=== PATIENT | female | born 1960 | race Caucasian/White ===

== ENCOUNTER 2020-05-03 07:52 | Observation (INO) | payer BC ==
[2020-05-03] MEDS ORDERED: Ondansetron 4 MG/2 ML SDV IVPUSH ONE (08:16)
[2020-05-03] MEDS ORDERED: Pantoprazole 40 MG Vial IVPUSH ONE (08:16)
[2020-05-03] MEDS ORDERED: Famotidine 20 MG/2 ML SDV IVPUSH ONE (08:16)
[2020-05-03] MEDS ORDERED: Lactated Ringers 1,000 ML IV ONE (08:16)
--- NOTE | 2020-05-03 08:16 | EDM.PDOC ---
ED HPI GENERAL MEDICAL PROBLEM - General Chief Complaint: Abdominal Pain Stated Complaint: abd pain Time Seen by Provider: 05/03/20 08:15 Source of Information: Reports: Patient, Old Records ([facility] EMR. No paper hospital chart available.) History Limitations: Reports: No Limitations - History of Present Illness INITIAL COMMENTS - FREE TEXT/NARRATIVE: The patient was brought to the emergency room via private automobile by a coworker for evaluation of 8/10 sharp left upper quadrant abdominal pain with sudden onset at work at about 6:45 AM this morning. Patient did have one loose bowel movement this morning with no known exposure to infection, food poisoning, etc. She did have a very light breakfast at about 5:30 AM, however 4 episodes of emesis prior to arrival. She did take her morning medications, however note emeses as above. No recent history of other abdominal pain, heartburn, true diarrhea, melena, gross hematochezia, or any food intolerance, including fatty foods, etc. with otherwise normal bowel movement earlier this morning as above. She denies any gross hematuria, colic, or other UTI symptoms. The patient denies any chest pain/pressure, heart flutter, dizziness, orthostasis, orthopnea, diaphoresis, paresthesias, recent decreased exercise tolerance, or any other anginal-type symptoms. The patient also denies any recent fever, cough, wheezing, dyspnea, etc.. Onset: Today, Sudden Onset Date: 05/03/20 Onset Time: 06:45 Duration: Constant, Getting Worse Location: Reports: Abdomen. Denies: Head, Face, Neck, Chest, Back, Pelvis, Upper Extremity, Left, Upper Extremity, Right, Lower Extremity, Left, Lower Extremity, Right, Radiates to Quality: Reports: Stabbing Severity: Moderate Improves with: Reports: None Worsens with: Reports: None Context: Reports: Other (As above). Denies: Sick Contact, Trauma Associated Symptoms: Reports: Nausea/Vomiting. Denies: Confusion, Chest Pain, Cough, Diaphoresis, Fever/Chills, Headaches, Loss of Appetite, Malaise, Rash, Shortness of Breath, Syncope, Weakness Treatments CHARACTER ACTRESS: Reports: Other (see below) (None) Left Upper Abdominal Pain Score (Numeric/FACES): 8 - Related Data Allergies Allergy/AdvReac Type Severity Reaction Status Date / Time Penicillins Allergy Cannot Verified 05/03/20 07:53 Remember propranolol Allergy Cannot Verified 05/03/20 07:53 Remember Home Meds: Home Meds DULoxetine [Cymbalta] 60 mg PO DAILY 05/03/20 [History] Gabapentin [Neurontin] 600 mg PO BEDTIME 05/03/20 [History] Omeprazole 40 mg PO DAILY 05/03/20 [History] metFORMIN [Glucophage XR] 250 mg PO BIDMEALS 05/03/20 [History] Past Medical History HEENT History: Reports: Impaired Vision, Other (See Below). Denies: Allergic Rhinitis, Cataract, Glaucoma, Hard of Hearing, Macular Degeneration, Otitis Media, Retinal Detachment Other HEENT History: No diabetic retinopathy. Patient wears reading glasses. Cardiovascular History: Reports: High Cholesterol. Denies: Aneurysm, Arrhythmia, Blood Clots/VTE/DVT, CAD, Heart Failure, Heart Murmur, Hypertension, TX, Syncope Respiratory History: Reports: None, Intubation, Previous. Denies: Asthma, Bronchitis, Recurrent, COPD, Intubation, Difficult, PE, Pneumonia, Recurrent, Pneumothorax, Sleep Apnea, TB Gastrointestinal History: Reports: GERD. Denies: Bowel Obstruction, Celiac Disease, Cholelithiasis, Chronic Constipation, Chronic Diarrhea, Colon Polyp, Diverticulosis, Fecal Incontinence, GI Bleed, Hepatitis, Helicobacter Pylori, Inflammatory Bowel Disease, Irritable Bowel Syndrome, Jaundice, Pancreatitis, PUD Genitourinary History: Reports: Renal Calculus. Denies: Acute Renal Failure, Chronic Renal Insuffiency, Retention, Urinary, STD, Urinary Incontinence, UTI, Recurrent Other Genitourinary History: Right-sided urolithiasis with open stone excision required at 23 years of age. 2 subsequent episodes of right-sided urolithiasis with spontaneous passage in the early . 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 Denies: Endometriosis : 4 Para: 2 LMP (Approximate): Other (See Below) Other HEALTHCARE CORPORATE ACCOUNT DIRECTOR History: Surgical menopause as below. 1 first trimester SAB not requiring D&C. delivery at 6 months gestation with demise. Otherwise, full term without complications during pregnancies or deliveries with exception of mild gestational hypertension at last . Musculoskeletal History: Reports: Arthritis, Back Pain, Chronic, Neck Pain, Chronic, Osteoarthritis. Denies: Amputation, Fracture, Gout, Osteoporosis, RA, SLE Neurological History: Reports: Headaches, Chronic, Migraines, Neuropathy, Diabetic, Neuropathy, Peripheral. Denies: Cerebral Aneurysms, Concussion, CVA, Head Trauma, MS, Parkinson's, Seizure, TIA, Vertigo Psychiatric History: Reports: Anxiety, Depression, Other (See Below). Denies: Abuse, Victim of, ADD, ADHD, Addiction, Psych Hospitalization(s), PTSD, Suicide Attempt, Suicidal Ideation Other Psychiatric History: Cymbalta for insomnia and pain control and diabetic neuropathy. Endocrine/Metabolic History: Reports: Diabetes, Type II, Obesity/BMI 30+. De nies: Diabetes, Gestational, Diabetes, Type I, Diabetes Mellitus, Type 3c, Hypothyroidism, IDDM, Osteopenia, Osteoporosis Hematologic History: Reports: None. Denies: Anemia, Blood Transfusion(s), Iron Deficiency Immunologic History: Reports: None. Denies: AIDS, HIV, SLE Oncologic (Cancer) History: Reports: None. Denies: Basal Cell Carcinoma, Cervix, Colon, Hodgkin's Lymphoma, Leukemia, Malignant Melanoma, Non-Hodgkin's Lymphoma, Ovarian, Squamous Cell Carcinoma, Thyroid, Uterine Dermatologic History: Reports: None. Denies: Eczema, Psoriasis - Infectious Disease History Infectious Disease History: Reports: Chicken Pox, Mononucleosis (In the late 1980s.). Denies: C-Difficile, Measles, Meningitis, MRSA, Mumps, Novel Coronavirus, Rheumatic Fever, Rubella, Shingles, TB, VRE - Past Surgical History Head Surgeries/Procedures: Reports: None HEENT Surgical History: Reports: Oral Surgery, Other (See Below). Denies: Adenoidectomy, Cataract Surgery, Eye Surgery, Laser Surgery, Myringotomy w Tube(s), Naso-Sinus Surgery, Tonsillectomy Other HEENT Surgeries/Procedures: [place] teeth extraction x4 at about age 27. Cardiovascular Surgical History: Reports: None. Denies: Varicose Respiratory Surgical History: Reports: None. Denies: Thoracentesis GI Surgical History: Reports: Colonoscopy, EGD, Other (See Below). Denies: Appendectomy, Cholecystectomy, Hernia, Abdominal, Hernia, Inguinal, Hernia Repair/Other, Polypectomy Other GI Surgeries/Procedures: Colonoscopy and EGD in about 2014. Female Surgical History: Reports: Tubal Ligation, Other (See Below). Denies: Breast Biopsy, D&C, Salpingo-Oophorectomy Other Female Surgeries/Procedures: Bilateral tubal ligation in 1988. Partial hysterectomy in 1995 secondary to uterine fibroids and dysfunctional uterine bleeding. Open excision of right sided urolithiasis at age 23. Endocrine Surgical History: Reports: None. Denies: Thyroid Biopsy Neurological Surgical History: Reports: None. Denies: C-Spine, Discectomy, Laminectomy, Lumbar Spine, Sacral Spine, Spinal Fusion, Thoracic Spine, Vertebroplasty Musculoskeletal Surgical History: Reports: None. Denies: Arthroscopic Procedure, Carpal Tunnel, Ganglion Cyst, Joint Replacement, ORIF, Shoulder Surgery Oncologic Surgical History: Reports: None Dermatological Surgical History: Reports: None - Past Imaging History Past Imaging History: Reports: Ultrasound (OB ultrasounds.) Social & Family History - Family History HEENT: Reports: Glaucoma, Other (See Below). Denies: Macular Degeneration, Retinal Detachment Other HEENT Family History: Mother with glaucoma. Cardiac: Reports: CAD, Hypertension, TX, Stent, Other (See Below). Denies: Afib, AICD, Aneurysm, Blood Clots/VTE/DVT, Heart Failure, High Cholesterol, Pacemaker, Syncope Other Cardiac Family History: Father with TX at age 75 with PTCA/stent x3. Brother with history of recurrent MIs initially at age 50 with multiple PTCA/nu nts. Paternal grand mother and parents with hypertension. Respiratory: Reports: None. Denies: Asthma, COPD, PE, Pneumothorax, Sleep Apnea GI: Reports: Cholelithiasis, GERD, Hiatal Hernia, Pancreatitis, Other (See Below). Denies: Celiac Disease, Colon Polyps, Inflammatory Bowel Disease, Irritable Bowel Syndrome Other GI Family History: Paternal grandmother with pancreatic cancer as below. Mother with cholelithiasis, hiatal hernia, and GERD. : Reports: Renal Calculus, Other (See Below). Denies: Renal Disease/Insufficiency Other Family History: Paternal grandmother with recurrent urolithiasis. OBGYN: Reports: None. Denies: Dysfunctional uterine bleeding, Endometriosis, Recurrent Spontaneous Musculoskeletal: Reports: None. Denies: Arthritis, Gout, Osteoarthritis, Osteoporosis, RA, SLE Neurological: Reports: Alzheimers Disease, Dementia, Seizure, Other (See Below). Denies: Cerebral Aneurysms, CVA, Migraines, MS, Parkinson's, TIA Other Neurological Family History: Maternal grandmother with organic brain syndrome. Sister with childhood including epilepsy with subsequent fatal glioblastoma as below. Psychiatric: Reports: None. Denies: Abuse, Victim of, ADD, ADHD, Anxiety, Depression, Psych Hospitalization(s), PTSD, Suicide Attempt Endocrine/Metabolic: Reports: Hyperthyroidism, Hypothyroidism, Other (See Below). Denies: Diabetes, Type I, Diabetes, type II, IDDM Other Endocrine/Metabolic Family History: Sister and daughter with history of Graves' disease. Hematologic: Reports: None. Denies: Anemia, SLE Immunologic: Denies: AIDS, HIV, SLE Dermatologic: Reports: None. Denies: Eczema, Psoriasis Oncologic: Reports: Bladder, Brain, Breast, Colon, Liver, Lung, Pancreatic, Other (See Below). Denies: Hodgkin's Lymphoma, Leukemia, Non-Hodgkin's Lymphoma, Ovarian, Renal, Skin, Uterine Other Oncologic Family History: Paternal grandmother with fatal metastatic pancreatic cancer in her 80's with previous bladder cancer, lung cancer, and breast cancer. Maternal grandfather with fatal metastatic pancreatic cancer at age 65. Sister with history of glioblastoma at age 39. Father with fatal metastatic pancreatic cancer at age 76. Paternal uncle with fatal primary liver cancer at age 75 with no history of alcohol abuse. - Tobacco Use Tobacco Use Status *Q: Never Tobacco User Tobacco Use Within Last Twelve Months: No Used Tobacco, but Quit: No Smoking Cessation Information Provided To Patient: No Second Hand Smoke Exposure: Yes Source of Second Hand Smoke Exposure: chews tobacco Second Hand Smoke Education Provided: Yes - Caffeine Use Caffeine Use: Reports: Tea (3 cups or glasses). Denies: Coffee, Energy Drinks, Soda - Alcohol Use Days Per Week of Alcohol Use: 0 Number of Drinks Per Day: 1 Number of Drinks Per Day Comment: Usually wine for holidays. No previous DWIs, problems with alcohol abuse, etc. Total Drinks Per Week: 0 Alcohol Use in Last Twelve Months: Yes - Recreational Drug Use Recreational Drug Use: No Drug Use in Last 12 Months: No Recreational Drug Type: Denies: Amphetamines (Speed), Cocaine, Heroin, Inhalants (Glues, Solvents, Aerosols), Marijuana/Hashish, Methamphetamine, Oxycodone - Living Situation & Occupation Living situation: Reports: (1980. 2 children), with Family () Occupation: Employed ([employer]) ED ROS GENERAL - Review of Systems Review Of Systems: Comprehensive ROS is negative, except as noted in HPI. ED EXAM, GI/ABD - Physical Exam Exam: See Below Exam Limited By: No Limitations General Appearance: Alert, WD/WN, No Apparent Distress, Anxious (Mild to moderate) Eyes: Bilateral: Normal Appearance (No vertigo or nystagmus. No glasses.), EOMI (PERRLA) Ears: Normal External Exam, Normal Canal, Hearing Grossly Normal, Normal TMs Nose: Normal Inspection, Normal Mucosa, No Blood Throat/Mouth: Normal Inspection, Normal Lips, Normal Teeth, Normal Gums, Normal Oropharynx, Normal Voice, No Airway Compromise. No: Dysphagia, Inflammation, Perioral Cyanosis Head: Atraumatic, Normocephalic. No: Facial Swelling, Facial Tenderness, Sinus Tenderness Neck: Normal Inspection, Supple, Non-Tender, Full Range of Motion. No: Carotid Bruit, Lymphadenopathy (L), Lymphadenopathy (R), Thyromegaly Respiratory/Chest: No Respiratory Distress, Lungs Clear, Normal Breath Sounds, No Accessory Muscle Use, Chest Non-Tender. No: Pleural Rub, Retractions Cardiovascular: Normal Peripheral Pulses, Regular Rate, Rhythm, No Edema, No Gallop, No JVD, No Murmur, No Rub. No: Diastolic Murmur, Gallop/S3, Gallop/S4 GI/Abdominal Exam: Normal Bowel Sounds, No Organomegaly, No Distention, No Abnormal Bruit, No Mass, Tender (Moderate left upper quadrant palpation pain). No: Guarding, Rebound (Female) Exam: Deferred Rectal (Female) Exam: Deferred Back Exam: Full Range of Motion, Other (Mild scoliosis). No: CVA Tenderness (L), CVA Tenderness (R), Muscle Spasm, Paraspinal Tenderness, Vertebral Tenderness Extremities: Normal Inspection, Normal Range of Motion, Non-Tender, Normal Capillary Refill, No Pedal Edema Neurological: Alert, Oriented, CN II-XII Intact, Normal Cognition, Normal Gait, Normal Reflexes, No Motor/Sensory Deficits Psychiatric: Anxious (Mild to moderate), Depressed Mood (Borderline) Skin Exam: Warm, Dry, Intact, Normal Color, No Rash. No: Diaphoretic (Mild on arrival by nurses history however resolved at time of my exam), Ecchymosis, Jaundice, Petechiae, Wound/Incision Lymphatic: No Adenopathy Course - Vital Signs Last Recorded V/S: Last Vital Signs Temp 36.1 C 05/03/20 08:07 Pulse 88 05/03/20 09:35 Resp 16 05/03/20 10:20 BP 120/68 05/03/20 10:20 Pulse Ox 93 L 05/03/20 10:20 Vital Signs - 24 hr 05/03/20 05/03/20 05/03/20 07:53 08:07 08:57 Temperature [ 36.1 C 36.1 C Temporal] Pulse, 81 85 85 Peripheral [ Pulse Oximetry] Respiratory 20 20 18 Rate Blood Pressure 157/121 H 143/70 H 149/68 H [Left Upper Arm ] O2 Sat by Pulse 96 96 94 L Oximetry 05/03/20 05/03/20 09:35 10:20 Temperature [ Temporal] Pulse, 88 Peripheral [ Pulse Oximetry] Respiratory 18 16 Rate Blood Pressure 146/84 H 120/68 [Left Upper Arm ] O2 Sat by Pulse 95 93 L Oximetry - Orders/Labs/Meds Orders: Active Orders 24 hr Category Date Time Status Peripheral IV Care [RC] . DIRECTED Care 05/03/20 08:17 Active Nothing Per Oral Diet [DIET] Diet 05/03/20 Breakfast Active Abdomen Pelvis w Cont [CT] Stat Exams 05/03/20 09:33 Taken Abdomen Series w Chest 1V [CR] Stat Exams 05/03/20 08:17 Taken CULTURE URINE [RM] Stat Lab 05/03/20 09:50 Received Sodium Chloride 0.9% [Saline Flush] Med 05/03/20 08:16 Active 10 ml FLUSH ASDIRECTED PRN Isolation [COMM] Routine Oth 05/03/20 08:18 Active Obtain Past Medical Record [OM.PC] Urgent Oth 05/03/20 08:17 Active Peripheral IV Insertion Adult [OM.PC] Stat Oth 05/03/20 08:17 Ordered Resuscitation Status Stat Resus Stat 05/03/20 08:16 Ordered Medication Orders Sodium Chloride (Saline Flush) 10 ml FLUSH ASDIRECTED PRN PRN Reason: Keep Vein Open Last Admin: 05/03/20 09:39 Dose: 10 ml Documented by: Admin: 05/03/20 08:32 Dose: 10 ml Documented by: CARMELO Labs: Laboratory Tests 05/03/20 05/03/20 05/03/20 Range/Units 08:00 08:00 08:00 WBC 6.2 (4.0-10.2) K/uL RBC 4.89 (3.77-5.09) M/uL Hgb 14.0 (11.7-15.5) g/dL Hct 43.5 (34.0-46.0) % MCV 89.0 (84.0-98.0) fL MCH 28.6 (28.2-33.3) pg MCHC 32.2 (31.7-36.0) g/dL RDW 13.6 (11.2-14.1) % Plt Count 221 (150-350) K/uL Neut % (Auto) 61.9 (45.0-80.0) % Lymph % (Auto) 26.8 (10.0-50.0) % [place] % (Auto) 5.8 (2.0-14.0) % Eos % (Auto) 4.7 (0.0-5.0) % Baso % (Auto) 0.8 (0.0-2.0) % Neut # (Auto) 3.85 (1.40-7.00) K/uL Lymph # (Auto) 1.67 (0.50-3.50) K/uL [place] # (Auto) 0.36 (0.00-1.00) K/uL Eos # (Auto) 0.29 (0.00-0.50) K/uL Baso # (Auto) 0.05 (0.00-0.20) K/uL PT 9.1 L (9.5-12.0) SEC INR 0.9 APTT 23.2 L (24.5-32.8) SEC Sodium (136-145) mmol/L Potassium (3.5-5.1) mmol/L Chloride (98-107) mmol/L Carbon Dioxide (21.0-32.0) mmol/L BUN (7-18) mg/dL Creatinine (0.51-1.17) mg/dL Est Cr Clr Drug Dosing mL/min Estimated GFR (MDRD) mL/min Glucose (70-99) mg/dL Lactic Acid (0.4-2.0) mmol/L Uric Acid (2.6-7.2) mg/dL Calcium (8.5-10.1) mg/dL Magnesium (1.8-2.4) mg/dL Total Bilirubin (0.2-1.0) mg/dL AST (15-37) U/L ALT (12-78) U/L Alkaline Phosphatase (46-116) IU/L Total Protein (6.4-8.2) g/dL Albumin (3.4-5.0) g/dL Amylase 31 (25-115) U/L Lipase (73-393) U/L Specimen Type Urine Color Urine Appearance Urine pH (5.0-9.0) Ur Specific [place] (1.005-1.030) Urine Protein (NEGATIVE) mg/dL Urine Glucose (UA) (NEGATIVE) mg/dL Urine Ketones (NEGATIVE) mg/dL Urine Occult Blood (NEGATIVE) Urine Nitrite (NEGATIVE) Urine Bilirubin (NEGATIVE) Urine Urobilinogen (0.2-1.0) E.U./dL Ur Leukocyte Esterase (NEGATIVE) Urine RBC /HPF Urine WBC /HPF Urine Bacteria (NONE TO FEW) /HPF SARS-CoV-2 RNA (ADITI) (NEGATIVE) 05/03/20 05/03/20 05/03/20 Range/Units 08:00 08:00 08:18 WBC (4.0-10.2) K/uL RBC (3.77-5.09) M/uL Hgb (11.7-15.5) g/dL Hct (34.0-46.0) % MCV (84.0-98.0) fL MCH (28.2-33.3) pg MCHC (31.7-36.0) g/dL RDW (11.2-14.1) % Plt Count (150-350) K/uL Neut % (Auto) (45.0-80.0) % Lymph % (Auto) (10.0-50.0) % [place] % (Auto) (2.0-14.0) % Eos % (Auto) (0.0-5.0) % Baso % (Auto) (0.0-2.0) % Neut # (Auto) (1.40-7.00) K/uL Lymph # (Auto) (0.50-3.50) K/uL [place] # (Auto) (0.00-1.00) K/uL Eos # (Auto) (0.00-0.50) K/uL Baso # (Auto) (0.00-0.20) K/uL PT (9.5-12.0) SEC INR APTT (24.5-32.8) SEC Sodium 140 (136-145) mmol/L Potassium 3.9 (3.5-5.1) mmol/L Chloride 104 (98-107) mmol/L Carbon Dioxide 26.9 (21.0-32.0) mmol/L BUN 13 (7-18) mg/dL Creatinine 0.76 (0.51-1.17) mg/dL Est Cr Clr Drug Dosing 70.52 mL/min Estimated GFR (MDRD) > 60 mL/min Glucose 226 H (70-99) mg/dL Lactic Acid 1.8 (0.4-2.0) mmol/L Uric Acid 5.0 (2.6-7.2) mg/dL Calcium 9.0 (8.5-10.1) mg/dL Magnesium 1.9 (1.8-2.4) mg/dL Total Bilirubin 0.4 (0.2-1.0) mg/dL AST 55 H (15-37) U/L ALT 100 H (12-78) U/L Alkaline Phosphatase 128 H (46-116) IU/L Total Protein 7.2 (6.4-8.2) g/dL Albumin 3.6 (3.4-5.0) g/dL Amylase (25-115) U/L Lipase 105 (73-393) U/L Specimen Type Urine Color Urine Appearance Urine pH (5.0-9.0) Ur Specific [place] (1.005-1.030) Urine Protein (NEGATIVE) mg/dL Urine Glucose (UA) (NEGATIVE) mg/dL Urine Ketones (NEGATIVE) mg/dL Urine Occult Blood (NEGATIVE) Urine Nitrite (NEGATIVE) Urine Bilirubin (NEGATIVE) Urine Urobilinogen (0.2-1.0) E.U./dL Ur Leukocyte Esterase (NEGATIVE) Urine RBC /HPF Urine WBC /HPF Urine Bacteria (NONE TO FEW) /HPF SARS-CoV-2 RNA (ADITI) Negative (NEGATIVE) 05/03/20 Range/Units 09:50 WBC (4.0-10.2) K/uL RBC (3.77-5.09) M/uL Hgb (11.7-15.5) g/dL Hct (34.0-46.0) % MCV (84.0-98.0) fL MCH (28.2-33.3) pg MCHC (31.7-36.0) g/dL RDW (11.2-14.1) % Plt Count (150-350) K/uL Neut % (Auto) (45.0-80.0) % Lymph % (Auto) (10.0-50.0) % [place] % (Auto) (2.0-14.0) % Eos % (Auto) (0.0-5.0) % Baso % (Auto) (0.0-2.0) % Neut # (Auto) (1.40-7.00) K/uL Lymph # (Auto) (0.50-3.50) K/uL [place] # (Auto) (0.00-1.00) K/uL Eos # (Auto) (0.00-0.50) K/uL Baso # (Auto) (0.00-0.20) K/uL PT (9.5-12.0) SEC INR APTT (24.5-32.8) SEC Sodium (136-145) mmol/L Potassium (3.5-5.1) mmol/L Chloride (98-107) mmol/L Carbon Dioxide (21.0-32.0) mmol/L BUN (7-18) mg/dL Creatinine (0.51-1.17) mg/dL Est Cr Clr Drug Dosing mL/min Estimated GFR (MDRD) mL/min Glucose (70-99) mg/dL Lactic Acid (0.4-2.0) mmol/L Uric Acid (2.6-7.2) mg/dL Calcium (8.5-10.1) mg/dL Magnesium (1.8-2.4) mg/dL Total Bilirubin (0.2-1.0) mg/dL AST (15-37) U/L ALT (12-78) U/L Alkaline Phosphatase (46-116) IU/L Total Protein (6.4-8.2) g/dL Albumin (3.4-5.0) g/dL Amylase (25-115) U/L Lipase (73-393) U/L Specimen Type Urinvoid Urine Color Yellow Urine Appearance Clear Urine pH 7.0 (5.0-9.0) Ur Specific [place] 1.015 (1.005-1.030) Urine Protein Negative (NEGATIVE) mg/dL Urine Glucose (UA) Negative (NEGATIVE) mg/dL Urine Ketones Negative (NEGATIVE) mg/dL Urine Occult Blood Negative (NEGATIVE) Urine Nitrite Negative (NEGATIVE) Urine Bilirubin Negative (NEGATIVE) Urine Urobilinogen 0.2 (0.2-1.0) E.U./dL Ur Leukocyte Esterase Negative (NEGATIVE) Urine RBC Not seen /HPF Urine WBC Not seen /HPF Urine Bacteria Not seen (NONE TO FEW) /HPF SARS-CoV-2 RNA (ADITI) (NEGATIVE) Meds: Medications Generic Name Dose Route Start Last Admin Trade Name Freq PRN Reason Stop Dose Admin Sodium Chloride 10 ml 05/03/20 08:16 05/03/20 09:39 Saline Flush FLUSH 10 ml ASDIRECTED PRN Administration Keep Vein Open Discontinued Medications Generic Name Dose Route Start Last Admin Trade Name Freq PRN Reason Stop Dose Admin Al Hydroxide/Mg Hydroxide 30 ml 05/03/20 08:51 05/03/20 08:54 Gi Cocktail PO 05/03/20 08:52 30 ml ONETIME ONE Administration Famotidine 40 mg 05/03/20 08:16 05/03/20 08:30 Pepcid IVPUSH 05/03/20 08:17 40 mg ONETIME ONE Administration Hydromorphone HCl 1 mg 05/03/20 08:50 05/03/20 08:54 Dilaudid IVPUSH 05/03/20 08:51 1 mg ONETIME ONE Administration Lactated Ringer's 1,000 mls @ 999 mls/hr 05/03/20 08:16 05/03/20 08:34 Ringers, Lactated IV 05/03/20 09:16 999 mls/hr .BOLUS ONE Administration Iopamidol 100 ml 05/03/20 09:38 Isovue-300 (61%) IVPUSH 05/03/20 09:39 ONETIME ONE Metoclopramide HCl 10 mg 05/03/20 09:34 05/03/20 09:39 Reglan IVPUSH 05/03/20 09:35 10 mg ONETIME ONE Administration Ondansetron HCl 4 mg 05/03/20 08:16 05/03/20 08:25 Zofran IVPUSH 05/03/20 08:17 4 mg ONETIME ONE Administration Pantoprazole Sodium 40 mg 05/03/20 08:16 05/03/20 08:26 Protonix Iv IVPUSH 05/03/20 08:17 40 mg ONETIME ONE Administration - Radiology Interpretation Free Text/Narrative:: Acute abdominal x-rays shows evidence of mild scoliosis and osteoarthritic changes in the spine with additional mildly elevated right hemidiaphragm with no evidence of intra-abdominal calcifications, fluid levels, free air, ileus, obstruction, cardiomegaly, CHF, pulmonary infiltrates, pneumothorax, etc. CT of the abdomen and pelvis with both IV and oral contrast indicate no evidence of pancreatitis with mild hepatomegaly and moderate diffuse hepatic steatosis. Additional not clinically significant tiny fatty umbilical hernia. Incidental possible mild benign renal cyst. Preliminary verbal report was not received from [place] radiology department as requested. 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 Diabetes mellitus complication status: with neurologic complications Diabetes mellitus complication detail: with polyneuropathy Qualified Code(s): E11.42 - Type 2 diabetes mellitus with diabetic polyneuropathy Osteoarthritis Qualifiers: Osteoarthritis location: multiple joints Osteoarthritis type: primary Qualified Code(s): M89.49 - Other hypertrophic osteoarthropathy, multiple sites Hyperlipidemia Qualifiers: Hyperlipidemia type: unspecified Qualified Code(s): E78.5 - Hyperlipidemia, unspecified - Discharge Information *PRESCRIPTION DRUG MONITORING PROGRAM REVIEWED*: Not Applicable *COPY OF PRESCRIPTION DRUG MONITORING REPORT IN PATIENT YOEL: Not Applicable Referrals: Imani Virgen NP [Primary Care Provider] - Forms: ED Department Discharge Care Plan Goals: See plan Sepsis Event Note (ED) - Evaluation Sepsis Screening Result: No Definite Risk - Focused Exam Vital Signs: Vital Signs Temp Pulse Resp BP Pulse Ox 05/03/20 10:20 16 120/68 93 L 05/03/20 09:35 88 18 146/84 H 95 02/23/21 08:57 85 18 149/68 H 94 L 05/03/20 08:07 36.1 C 85 20 143/70 H 96 05/03/20 07:53 36.1 C 81 20 157/121 H 96 - Problem List & Annotations (1) Abdominal pain SNOMED Code(s): 79938901 Code(s): R10.9 - UNSPECIFIED ABDOMINAL PAIN Status: Acute Current Visit: Yes Onset Date: 05/03/20 Annotation/Comment:: Note CTA of the abdomen and pelvis results as above. Strong family history of pancreatic cancer with patient apparently previously having genetic testing. Continue to observe patient's symptoms closely after discharge with consideration of MRI of the pancreatic region secondary to her significant family history of pancreatic cancer and other risk factors. Abdominal pain somewhat refractory to aggressive therapy as above, including high-dose IV Pepcid, IV Protonix, and green lizard. Note additional IV Reglan and IV Zofran was given with improved/resolved nausea. Patient's abdominal pain was returning at the end of her emergency room care. Various therapeutic options were discussed with the patient with patient be placed in observation status for further IV therapy and repeat blood work in the a.m. Qualifiers: Abdominal location: left upper quadrant Qualified Code(s): R10.12 - Left upper quadrant pain (2) Diabetes mellitus SNOMED Code(s): 82279950 Code(s): E11.9 - TYPE 2 DIABETES MELLITUS WITHOUT COMPLICATIONS Status: Chronic Priority: Medium Current Visit: Yes Annotation/Comment:: Glycosylated hemoglobin in the a.m. Patient has been noncompliant with her home Accu-Cheks. Qualifiers: Diabetes mellitus type: type 2 Diabetes mellitus longterm insulin use: without superintendent [employer] use Diabetes mellitus complication status: with neurologic complications Diabetes mellitus complication detail: with polyneuropathy Qualified Code(s): E11.42 - Type 2 diabetes mellitus with diabetic polyneuropathy (3) Elevated blood pressure reading SNOMED Code(s): 18182342 Code(s): R03.0 - ELEVATED BLOOD-PRESSURE READING, W/O DIAGNOSIS OF HTN Status: Acute Priority: High Current Visit: Yes Onset Date: 05/03/20 Annotation/Comment:: Moderately elevated blood pressures likely secondary to abdominal pain. No previous history of hypertension, although note history of gestational hypertension without eclampsia. (4) LFT elevation SNOMED Code(s): 107357574 Code(s): R79.89 - OTHER SPECIFIED ABNORMAL FINDINGS OF BLOOD CHEMISTRY Status: Acute Priority: High Current Visit: Yes Onset Date: 05/03/20 Annotation/Comment:: LFTs elevation possibly secondary to fatty liver, which was confirmed by today CT scan of the abdomen pelvis as above. Close observation after discharge by regular provider. Note current obesity. Total bilirubin, lipase and amylase were normal. (5) Mixed anxiety depressive disorder SNOMED Code(s): 115191799 Code(s): F41.8 - OTHER SPECIFIED ANXIETY DISORDERS Status: Chronic Priority: Medium Current Visit: Yes Annotation/Comment:: Stable by patient history (6) Osteoarthritis SNOMED Code(s): 580869816 Code(s): M19.90 - UNSPECIFIED OSTEOARTHRITIS, UNSPECIFIED SITE Status: Chronic Priority: Medium Current Visit: Yes Annotation/Comment:: Stable by patient history Qualifiers: Osteoarthritis location: multiple joints Osteoarthritis type: primary Qualified Code(s): M89.49 - Other hypertrophic osteoarthropathy, multiple sites (7) Peptic reflux disease SNOMED Code(s): 645965381 Code(s): K21.9 - GASTRO-ESOPHAGEAL REFLUX DISEASE WITHOUT ESOPHAGITIS Status: Chronic Priority: Medium Current Visit: Yes Annotation/Comment:: Aggressive therapy for abdominal pain as above. Previously stable by history, including no fatty food intolerance, etc.. Consider further work-up on an outpatient basis including possible EGD, HIDA scan, etc. depending on her clinical course. (8) Tobacco abuse counseling SNOMED Code(s): 389559093, 953271803, 166163961 Code(s): Z71.6 - TOBACCO ABUSE COUNSELING Status: Chronic Priority: Medium Current Visit: Yes Annotation/Comment:: The patient was counseled on the use of Nicorette gum for her . (9) Fatty liver SNOMED Code(s): 906070740 Code(s): K76.0 - FATTY (CHANGE OF) LIVER, NOT ELSEWHERE CLASSIFIED Status: Acute Priority: High Current Visit: Yes Onset Date: 05/03/20 Annotation/Comment:: As above (10) Hyperlipidemia SNOMED Code(s): 52009867 Code(s): E78.5 - HYPERLIPIDEMIA, UNSPECIFIED Status: Chronic Priority: High Current Visit: Yes Annotation/Comment:: Note previous history of intolerance to unknown statin secondary to leg cramps. Weight loss in moder ation strongly advisable. Note that the patient may benefit from a retrial with statin therapy initially on a Mondays, Wednesdays, and Fridays basis with additional high-dose Coenzyme Q-10 therapy. Close follow-up by regular provider after discharge. Qualifiers: Hyperlipidemia type: unspecified Qualified Code(s): E78.5 - Hyperlipidemia, unspecified - Problem List Review Problem List Initiated/Reviewed/Updated: Yes - My Orders Last 24 Hours: My Active Orders 05/03/20 Breakfast Nothing Per Oral Diet [DIET] 05/03/20 08:16 Sodium Chloride 0.9% [Saline Flush] 10 ml FLUSH ASDIRECTED PRN Resuscitation Status Stat 05/03/20 08:17 Peripheral IV Care [RC] . DIRECTED Abdomen Series w Chest 1V [CR] Stat Obtain Past Medical Record [OM.PC] Urgent Peripheral IV Insertion Adult [OM.PC] Stat 05/03/20 08:18 Isolation [COMM] Routine 05/03/20 09:33 Abdomen Pelvis w Cont [CT] Stat 05/03/20 09:50 CULTURE URINE [RM] Stat - Assessment/Plan Admission H&P: Please use this note as an admission H&P Last 24 Hours: My Active Orders 05/03/20 Breakfast Nothing Per Oral Diet [DIET] 05/03/20 08:16 Sodium Chloride 0.9% [Saline Flush] 10 ml FLUSH ASDIRECTED PRN Resuscitation Status Stat 05/03/20 08:17 Peripheral IV Care [RC] . DIRECTED Abdomen Series w Chest 1V [CR] Stat Obtain Past Medical Record [OM.PC] Urgent Peripheral IV Insertion Adult [OM.PC] Stat 05/03/20 08:18 Isolation [COMM] Routine 05/03/20 09:33 Abdomen Pelvis w Cont [CT] Stat 05/03/20 09:50 CULTURE URINE [RM] Stat Assessment:: As above Plan: As above. Extensive precautions were given to the patient, who is in agreement with the treatment plan.
[2020-05-03 08:31] LABS: PTT,PARTIAL THROMBOPLSTIN TIME 23.2 SEC (24.5-32.8)
[2020-05-03 08:32] LABS: CHLORIDE,CL 104 mmol/L (98-107); SODIUM,NA 140 mmol/L (136-145)
[2020-05-03] MEDS: Sodium Chloride 0.9% 10 ML Syringe FLUSH PRN ×3 (08:32→13:13)
[2020-05-03] MEDS ORDERED: HYDROmorphone 1 MG/ML Syringe IVPUSH ONE (08:50)
[2020-05-03] MEDS ORDERED: GI Cocktail Oral Solution 30 ML PO ONE (08:51)
[2020-05-03] MEDS ORDERED: Metoclopramide 10 MG/2 ML SDV IVPUSH ONE (09:34)
[2020-05-03] MEDS ORDERED: Iopamidol 612 MG/ML 100 ML Bottle IVPUSH ONE (09:38)
[2020-05-03] MEDS ORDERED: Acetaminophen 325 MG Tab PO PRN (12:26)
[2020-05-03] MEDS ORDERED: Sucralfate 1 GM Tab PO ONE (12:28)
[2020-05-03] MEDS ORDERED: Famotidine 20 MG/2 ML SDV IVPUSH SCH (12:45)
[2020-05-03] MEDS: HYDROmorphone 1 MG/ML Syringe IVPUSH PRN (13:13)
[2020-05-03] MEDS: Calcium Carbonate 750 MG Tab.Chew PO SCH ×2 (13:15→17:08)
[2020-05-03] MEDS ORDERED: 50% Dextrose in Water 50 ML Syringe IV PRN (14:30)
[2020-05-03] MEDS ORDERED: Glucagon,Human Recombinant 1 MG Vial IM PRN (14:30)
[2020-05-03] MEDS: Sucralfate 1 GM Tab PO SCH (17:08)
[2020-05-03] MEDS: Insulin Lispro 100 Units/ML 3 ML Vial SUBCUT SCH (17:08)
[2020-05-03] MEDS ORDERED: METFORMIN 250 MG PO SCH (17:30)
[2020-05-03] MEDS: Ondansetron 4 MG/2 ML SDV IVPUSH PRN (17:46)
[2020-05-03] MEDS ORDERED: Temazepam 15 MG Cap PO PRN (20:00)
[2020-05-03] MEDS ORDERED: Gabapentin 300 MG Cap PO SCH (20:00)
[2020-05-03] MEDS: Sodium Chloride 0.9% 10 ML Syringe FLUSH SCH (20:11)
[2020-05-03] MEDS: Pantoprazole 40 MG Vial IVPUSH SCH (20:11)
[2020-05-03] MEDS: Famotidine 20 MG/2 ML SDV IVPUSH SCH (20:11)
[2020-05-04] MEDS: Sucralfate 1 GM Tab PO SCH ×2 (00:52→05:15)
[2020-05-04] MEDS: Insulin Lispro 100 Units/ML 3 ML Vial SUBCUT SCH ×2 (00:52→05:34)
[2020-05-04] MEDS: Ondansetron 4 MG/2 ML SDV IVPUSH PRN ×2 (03:28→10:29)
[2020-05-04] MEDS: HYDROmorphone 1 MG/ML Syringe IVPUSH PRN (03:28)
[2020-05-04 07:32] LABS: HEMOGLOBIN A1C 8.1 % (4.3-5.7)
[2020-05-04] MEDS: Calcium Carbonate 750 MG Tab.Chew PO SCH (07:40)
[2020-05-04] MEDS: Pantoprazole 40 MG Vial IVPUSH SCH (07:41)
[2020-05-04] MEDS: Sodium Chloride 0.9% 10 ML Syringe FLUSH SCH ×2 (07:41→10:29)
[2020-05-04] MEDS: Famotidine 20 MG/2 ML SDV IVPUSH SCH (07:41)
[2020-05-04] MEDS ORDERED: DULoxetine 30 MG Cap PO SCH (08:00)
[2020-05-04 09:04] VITALS: BP 124/70; PULSE 72
--- NOTE | 2020-05-04 09:28 | PCM.DCSUM1 ---
Discharge Summary - Hospital Course HPI Initial Comments: See emergency room note/admission H&P Brief History: See emergency room note/admission H&P Diagnosis: Stroke: No Modified Talbot[place] Scale: No Symptoms at All Modified Talbot[place] Scale Score: 0 - Discharge Data Discharge Date: 05/04/20 Discharge Disposition: Home, Self-Care 01 Condition: Good - Referral to Home Health Primary Care Physician: Imani Virgen NP - Discharge Diagnosis/Problem(s) (1) Abdominal pain SNOMED Code(s): 41098418 ICD Code: R10.9 - UNSPECIFIED ABDOMINAL PAIN Status: Acute Current Visit: Yes Onset Date: 05/03/20 Problem Details: Significantly improved abdominal pain with aggressive therapy, including high-dose IV Protonix, IV Pepcid, and oral Carafate with additional antacids. Occasional IV Dilaudid was needed for breakthrough pain during this hospitalization. Various therapeutic options were discussed with the patient, who does agree to go home at this time. Work excuse was provided. Acute hepatitis panel was ordered secondary to persistent and mildly progressive LFTs elevation likely secondary to fatty liver, however results are still pending with this being a send out laboratory. In addition, a HIDA scan has been scheduled for 05/05 with results to be sent to her regular provider, MILTON Clinton at the [facility]. Note CTA of the abdomen and pelvis results as per emergency room note with no evidence of pancreatitis. Strong family history of pancreatic cancer with patient apparently previously having genetic testing, which indicated significant risk for pancreatic cancer. Continue to observe patient's symptoms closely after discharge with consideration of MRI of the pancreatic region secondary to her significant family history of pancreatic cancer and other risk factors. Abdominal pain somewhat refractory to aggressive therapy initially during this hospitalization with aggressive treatment as above Note additional green lizard, IV Reglan and IV Zofran were given during the early phases of this hospitalization with improved/resolved nausea at time of discharge. Patient's abdominal pain was returning at the end of her emergency room care. Various therapeutic options were discussed with the patient with patient be placed in observation status for further IV therapy, etc. as above. Strict compliance with diabetic heart healthy diet was strongly encouraged. Consider EGD depending on her clinical course. Qualifiers: Abdominal location: left upper quadrant Qualified Code(s): R10.12 - Left upper quadrant pain (2) Diabetes mellitus SNOMED Code(s): 99174722 ICD Code: E11.9 - TYPE 2 DIABETES MELLITUS WITHOUT COMPLICATIONS Status: Chronic Priority: Medium Current Visit: Yes Problem Details: Glycosylated hemoglobin on 11/01/2020 was elevated at 8.1%. Dietary compliance and weight loss in moderation strongly encouraged as above with dietary information to be provided at discharge. Note that the patient had been cutting her previous Metformin tablets in half secondary to diarrhea with this medication, although the patient is constipated today. Metformin will be increased to previously recommended dose with close follow-up by her regular provider. She was also advised not to start the newer diabetic medications, including Januvia or equivalent medication classes secondary to increased risk of pancreatitis with this medication.. Patient has been noncompliant with her home Accu-Cheks with compliance with Accu-Cheks strongly encouraged as per discharge instructions. Qualifiers: Diabetes mellitus type: type 2 Diabetes mellitus long filler cigar roller machine insulin use: without long filler cigar roller machine use Diabetes mellitus complication status: with neurologic complications Diabetes mellitus complication detail: with polyneuropathy Qualified Code(s): E11.42 - Type 2 diabetes mellitus with diabetic polyneuropathy (3) Elevated blood pressure reading SNOMED Code(s): 46340982 ICD Code: R03.0 - ELEVATED BLOOD-PRESSURE READING, W/O DIAGNOSIS OF HTN Status: Acute Priority: High Current Visit: Yes Onset Date: 05/03/20 Problem Details: Moderately elevated blood pressures likely secondary to abdominal pain, which did improve in the emergency room after pain control. Blood pressures were stable during this hospitalization. No previous history of hypertension, although note history of gestational hypertension without eclampsia. Patient may benefit from low-dose CHANDNI inhibitor therapy as a prophylactic measure secondary to her diabetes. (4) LFT elevation SNOMED Code(s): 892379550 ICD Code: R79.89 - OTHER SPECIFIED ABNORMAL FINDINGS OF BLOOD CHEMISTRY Status: Acute Priority: High Current Visit: Yes Onset Date: 05/03/20 Problem Details: As above. LFTs elevation likely secondary to fatty liver, which was confirmed by today CT scan of the abdomen pelvis. Close observation after discharge by regular provider. Note current obesity. Serial total bilirubin, lipase and amylase were normal. (5) Mixed anxiety depressive disorder SNOMED Code(s): 640695838 ICD Code: F41.8 - OTHER SPECIFIED ANXIETY DISORDERS Status: Chronic Priority: Medium Current Visit: Yes Problem Details: Stable by patient history. Continue to observe closely by her regular provider. (6) Osteoarthritis SNOMED Code(s): 249401747 ICD Code: M19.90 - UNSPECIFIED OSTEOARTHRITIS, UNSPECIFIED SITE Status: Chronic Priority: Medium Current Visit: Yes Problem Details: Stable by patient history and during this hospitalization. Qualifiers: Osteoarthritis location: multiple joints Osteoarthritis type: primary Qualified Code(s): M89.49 - Other hypertrophic osteoarthropathy, multiple sites (7) Peptic reflux disease SNOMED Code(s): 310450326 ICD Code: K21.9 - GASTRO-ESOPHAGEAL REFLUX DISEASE WITHOUT ESOPHAGITIS Status: Chronic Priority: Medium Current Visit: Yes Problem Details: Aggressive therapy for abdominal pain as above. Previously stable by history, including no fatty food intolerance, etc.. Further work-up as above, including possible EGD depending on her clinical course. (8) Tobacco abuse counseling SNOMED Code(s): 313663641, 931700665, 653338143 ICD Code: Z71.6 - TOBACCO ABUSE COUNSELING Status: Chronic Priority: Medium Current Visit: Yes Problem Details: The patient was counseled on the use of Nicorette gum for her . (9) Fatty liver SNOMED Code(s): 066498000 ICD Code: K76.0 - FATTY (CHANGE OF) LIVER, NOT ELSEWHERE CLASSIFIED Status: Acute Priority: High Current Visit: Yes Onset Date: 05/03/20 Problem Details: As above (10) Hyperlipidemia SNOMED Code(s): 68259823 ICD Code: E78.5 - HYPERLIPIDEMIA, UNSPECIFIED Status: Chronic Priority: High Current Visit: Yes Problem Details: Note previous history of intolerance to unknown statin secondary to leg cramps. Weight loss in moderation and dietary compliance strongly recommended and extensively discussed today. Note significant dyslipidemia with HDL of only 24 on 05/04/2020. Note that the patient may benefit from a retrial with statin therapy initially on a M , Wednesdays, and Fridays basis with additional high-dose Coenzyme Q-10 therapy. Close follow-up by regular provider after discharge with recommended repeat lipid panel and glycosylated hemoglobin in 3 months. Qualifiers: Hyperlipidemia type: mixed hyperlipidemia Qualified Code(s): E78.2 - Mixed hyperlipidemia - Patient Summary/Data Operative Procedure(s) Performed: None Complications: None Consults: None Labs Pending at D/C: 1. Urine culture and sensitivity 2. Acute hepatitis panel Recommended Follow-up Testing/Procedures: As above Planned Operative Procedure(s) after DC: None Hospital Course: Patient was placed in observation status with aggressive treatment for her abdominal pain as above. No evidence of acute GI bleed or other complications during this hospitalization. Risk factors, dietary information, weight loss, etc. were extensively discussed. Patient did tolerate diet prior to discharge. - Patient Instructions Diet: Heart Healthy Diet Diet, Other: 1200-calorie ADA with strict heart healthy diet Activity: As Tolerated Driving: May Drive Today Showering/Bathing: May Shower Notify Provider of: Fever, Increased Pain, Nausea and/or Vomiting Other/Special Instructions: 1. Followup with your regular provider in 7-10 days as directed with recommended repeat CBC, comprehensive metabolic panel, magnesium level, lipase, and amylase. Bring these discharge instructions with you to that visit. 2. HIDA scan in this facility on 05/05 with results to be discussed at the above follow-up visit. 3. Discuss acute hepatitis panel results from this hospitalization at the above follow-up. 4. Consider EGD, H. pylori stool evaluation, etc. depending on your symptoms at time of follow-up visit. 5. [place] diet including encouragement of oral fluids such as sports drinks, etc. for 24-48 hours as directed. Advance to strict ADA, heart healthy diet as tolerated thereafter. Strict dietary compliance with weight loss in moderation as above and as discussed. 6. Strict compliance with medical therapy as discussed, including Metformin, which should be restarted tomorrow morning secondary to contrast given during this hospitalization. Medications such as Januvia and/or equivalent drug classes should be avoided for now secondary to your risk for pancreatitis. 7. Strict compliance with your home blood sugar Accu-Cheks prior to breakfast and prior to supper on a daily basis with this record to be brought to each follow-up visit with your regular provider. 8. Stop all tobacco exposure LE[place] as directed with counselling, information, etc. given at discharge. 9. Recommend repeating your glycosylated hemoglobin and fasting lipid profile in 3 months. 10. Your regular provider will likely consider a retrial of low-dose statin therapy possibly initially on a Mondays, Wednesdays, and Fridays basis with additional concomitant high-dose coenzyme Q 10. - Discharge Plan *PRESCRIPTION DRUG MONITORING PROGRAM REVIEWED*: Not Applicable *COPY OF PRESCRIPTION DRUG MONITORING REPORT IN PATIENT YOEL: Not Applicable Prescriptions/Med Rec: Sucralfate [Carafate] 1 gm PO QIDACANDBED #60 tablet metFORMIN [Glucophage XR] 500 mg PO BIDMEALS #30 tab.er Home Medications: Home Meds DULoxetine [Cymbalta] 60 mg PO DAILY 05/03/20 [History] Gabapentin [Neurontin] 600 mg PO BEDTIME 05/03/20 [History] Omeprazole 40 mg PO DAILY 05/03/20 [History] Acetaminophen [Tylenol] 650 mg PO Q4H PRN tablet 05/04/20 [Rx] Calcium Carbonate [Tums Extra Strength] 750 mg PO BID tab.chew 05/04/20 [Rx] Sucralfate [Carafate] 1 gm PO QIDACANDBED #60 tablet 05/04/20 [Rx] metFORMIN [Glucophage XR] 500 mg PO BIDMEALS #30 tab.er 05/04/20 [Rx] Oxygen Therapy Mode: Room Air Patient Handouts: Health Risks of Smoking, Heart-Healthy Eating Plan, [id number], Smokeless Tobacco Information, Adult, Diabetes Mellitus and Nutrition, Adult Forms: Return to Work/Inpatient LLN, ED Department Discharge Referrals: Imani Virgen LICENSED PSYCHIATRIC TECHNICIAN [Primary Care Provider] - - Discharge Summary/Plan Comment DC Time >30 min.: Yes (Coordination of care ) Discharge Summary/Plan Comment: As above. Extensive precautions were given to the patient, who is in agreement with the treatment plan. See Patient Instructions for further treatment and plan. - General Info Date of Service: 05/04/20 Admission Dx/Problem (Free Text: 1. Abdominal pain 2. LFTs elevation Functional Status: Reports: Pain Controlled, Ambulating, Urinating. Denies: Tolerating Diet (N.p.o. however willing to have breakfast this morning), New Symptoms, Incentive Spirometry Numeric/FACES Score: 3 - Review of Systems General: Reports: No Symptoms. Denies: Fever, Weakness, Fatigue, Malaise, Chills, Appetite (Okay) HEENT: Reports: No Symptoms. Denies: Ear Pain, Eye Pain, Headaches, Post Nasal Drip, Sinus Congestion, Sore Throat, Rhinitis, Visual Changes Pulmonary: Reports: No Symptoms. Denies: Shortness of Breath, Pleuritic Chest Pain, Cough, Sputum, Hemoptysis, Wheezing Cardiovascular: Reports: No Symptoms. Denies: Chest Pain, Palpitations, Dyspnea on Exertion, Orthopnea, PND, Edema, Lightheadedness Gastrointestinal: Reports: Abdominal Pain (Left upper quadrant improved), Constipation (No bowel movement since admission), Decreased Appetite (Borderline). Denies: Diarrhea, Difficulty Swallowing, Flatus, Hematochezia, Melena, Nausea, Vomiting Genitourinary: Reports: No Symptoms. Denies: Dysuria, Frequency, Burning, Urgency, Incontinence, Hematuria, Retention, Flank Pain Musculoskeletal: Reports: No Symptoms. Denies: Neck Pain, Shoulder Pain, Arm Pain, Back Pain, Leg Pain Skin: Reports: No Symptoms. Denies: Jaundice, Diaphoresis, Bruising, Pruritis, Rash Neurological: Reports: No Symptoms. Denies: Confusion, Numbness, Paresthesia, Tingling, Weakness Psychiatric: Reports: No Symptoms. Denies: Confusion, Depression, Anxiety, Agitation, Hallucinations - Patient Data Vitals - Most Recent: Last Vital Signs Temp 36.2 C 05/04/20 08:00 Pulse 72 05/04/20 08:00 Resp 14 05/04/20 08:00 BP 124/70 05/04/20 08:00 Pulse Ox 94 L 05/04/20 08:00 Vital Signs - 24 hr 05/03/20 05/03/20 05/03/20 10:20 12:55 15:50 Temperature [ 36.7 C 36.6 C Temporal] Pulse, 79 85 Peripheral [ Pulse Oximetry] Respiratory 16 18 18 Rate Blood Pressure 120/68 135/70 119/69 [Left Upper Arm ] O2 Sat by Pulse 93 L 96 97 Oximetry 05/03/20 05/04/20 05/04/20 20:00 03:29 08:00 Temperature [ 35.9 C L 36.4 C 36.2 C Temporal] Pulse, 91 92 72 Peripheral [ Pulse Oximetry] Respiratory 16 12 14 Rate Blood Pressure 120/77 150/75 H 124/70 [Left Upper Arm ] O2 Sat by Pulse 94 L 99 94 L Oximetry Weight - Most Recent: 77.7 kg I&O - Last 24 hours: Intake & Output 05/03/20 05/04/20 05/04/20 22:59 06:59 14:59 Intake Total 50 Output Total 300 Balance -300 50 Imaging Impressions - Last 24 hrs: Acute abdominal x-rays on 05/03/2020 showed moderate stool with no fluid levels, free air, ileus, obstruction, intra-abdominal calcifications, etc. Evidence of possible coronary artery disease based on radiological report. Moderate scoliosis with additional mild osteoarthritic changes. No cardiomegaly, CHF, pulmonary infiltrates, pneumothorax, etc. CT scan of the abdomen pelvis with both IV and oral contrast on 10/11/2020 showed hepatomegaly with fatty liver with normal-appearing pancreas and incidental possible right renal cyst and small fat-containing umbilical hernia. Lab Results - Last 24 hrs: Laboratory Results - last 24 hr 05/03/20 05/03/20 05/03/20 Range/Units 08:18 09:50 16:43 WBC (4.0-10.2) K/uL RBC (3.77-5.09) M/uL Hgb (11.7-15.5) g/dL Hct (34.0-46.0) % MCV (84.0-98.0) fL MCH (28.2-33.3) pg MCHC (31.7-36.0) g/dL RDW (11.2-14.1) % Plt Count (150-350) K/uL Neut % (Auto) (45.0-80.0) % Lymph % (Auto) (10.0-50.0) % [place] % (Auto) (2.0-14.0) % Eos % (Auto) (0.0-5.0) % Baso % (Auto) (0.0-2.0) % Neut # (Auto) (1.40-7.00) K/uL Lymph # (Auto) (0.50-3.50) K/uL [place] # (Auto) (0.00-1.00) K/uL Eos # (Auto) (0.00-0.50) K/uL Baso # (Auto) (0.00-0.20) K/uL Sodium (136-145) mmol/L Potassium (3.5-5.1) mmol/L Chloride (98-107) mmol/L Carbon Dioxide (21.0-32.0) mmol/L BUN (7-18) mg/dL Creatinine (0.51-1.17) mg/dL Est Cr Clr Drug Dosing mL/min Estimated GFR (MDRD) mL/min Glucose (70-99) mg/dL POC Glucose 114 H (65-110) mg/dl Hemoglobin A1c (4.3-5.7) % Calcium (8.5-10.1) mg/dL Total Bilirubin (0.2-1.0) mg/dL AST (15-37) U/L ALT (12-78) U/L Alkaline Phosphatase (46-116) IU/L Total Protein (6.4-8.2) g/dL Albumin (3.4-5.0) g/dL Triglycerides (30-150) mg/dL Cholesterol (100-200) mg/dL LDL Cholesterol, Calc (0-100) mg/dL HDL Cholesterol (40-60) mg/dL Amylase (25-115) U/L Lipase (73-393) U/L Specimen Type Urinvoid Urine Color Yellow Urine Appearance Clear Urine pH 7.0 (5.0-9.0) Ur Specific [place] 1.015 (1.005-1.030) Urine Protein Negative (NEGATIVE) mg/dL Urine Glucose (UA) Negative (NEGATIVE) mg/dL Urine Ketones Negative (NEGATIVE) mg/dL Urine Occult Blood Negative (NEGATIVE) Urine Nitrite Negative (NEGATIVE) Urine Bilirubin Negative (NEGATIVE) Urine Urobilinogen 0.2 (0.2-1.0) E.U./dL Ur Leukocyte Esterase Negative (NEGATIVE) Urine RBC Not seen /HPF Urine WBC Not seen /HPF Urine Bacteria Not seen (NONE TO FEW) /HPF SARS-CoV-2 RNA (ADITI) Negative (NEGATIVE) 05/04/20 05/04/20 05/04/20 Range/Units 03:41 07:15 07:15 WBC 6.5 (4.0-10.2) K/uL RBC 4.63 (3.77-5.09) M/uL Hgb 13.5 (11.7-15.5) g/dL Hct 41.8 (34.0-46.0) % MCV 90.3 (84.0-98.0) fL MCH 29.2 (28.2-33.3) pg MCHC 32.3 (31.7-36.0) g/dL RDW 13.6 (11.2-14.1) % Plt Count 213 (150-350) K/uL Neut % (Auto) 70.6 (45.0-80.0) % Lymph % (Auto) 20.0 (10.0-50.0) % [place] % (Auto) 5.5 (2.0-14.0) % Eos % (Auto) 3.1 (0.0-5.0) % Baso % (Auto) 0.8 (0.0-2.0) % Neut # (Auto) 4.59 (1.40-7.00) K/uL Lymph # (Auto) 1.30 (0.50-3.50) K/uL [place] # (Auto) 0.36 (0.00-1.00) K/uL Eos # (Auto) 0.20 (0.00-0.50) K/uL Baso # (Auto) 0.05 (0.00-0.20) K/uL Sodium 141 (136-145) mmol/L Potassium 3.9 (3.5-5.1) mmol/L Chloride 104 (98-107) mmol/L Carbon Dioxide 32.0 (21.0-32.0) mmol/L BUN 12 (7-18) mg/dL Creatinine 0.97 (0.51-1.17) mg/dL Est Cr Clr Drug Dosing 55.26 mL/min Estimated GFR (MDRD) 59 mL/min Glucose 181 H (70-99) mg/dL POC Glucose 165 H (65-110) mg/dl Hemoglobin A1c (4.3-5.7) % Calcium 8.9 (8.5-10.1) mg/dL Total Bilirubin 0.5 (0.2-1.0) mg/dL AST 83 H (15-37) U/L ALT 111 H (12-78) U/L Alkaline Phosphatase 104 (46-116) IU/L Total Protein 6.7 (6.4-8.2) g/dL Albumin 3.4 (3.4-5.0) g/dL Triglycerides 158 H (30-150) mg/dL Cholesterol 199 (100-200) mg/dL LDL Cholesterol, Calc 126 H (0-100) mg/dL HDL Cholesterol 41 (40-60) mg/dL Amylase 24 L (25-115) U/L Lipase 76 (73-393) U/L Specimen Type Urine Color Urine Appearance Urine pH (5.0-9.0) Ur Specific [place] (1.005-1.030) Urine Protein (NEGATIVE) mg/dL Urine Glucose (UA) (NEGATIVE) mg/dL Urine Ketones (NEGATIVE) mg/dL Urine Occult Blood (NEGATIVE) Urine Nitrite (NEGATIVE) Urine Bilirubin (NEGATIVE) Urine Urobilinogen (0.2-1.0) E.U./dL Ur Leukocyte Esterase (NEGATIVE) Urine RBC /HPF Urine WBC /HPF Urine Bacteria (NONE TO FEW) /HPF SARS-CoV-2 RNA (ADITI) (NEGATIVE) 05/04/20 Range/Units 07:15 WBC (4.0-10.2) K/uL RBC (3.77-5.09) M/uL Hgb (11.7-15.5) g/dL Hct (34.0-46.0) % MCV (84.0-98.0) fL MCH (28.2-33.3) pg MCHC (31.7-36.0) g/dL RDW (11.2-14.1) % Plt Count (150-350) K/uL Neut % (Auto) (45.0-80.0) % Lymph % (Auto) (10.0-50.0) % [place] % (Auto) (2.0-14.0) % Eos % (Auto) (0.0-5.0) % Baso % (Auto) (0.0-2.0) % Neut # (Auto) (1.40-7.00) K/uL Lymph # (Auto) (0.50-3.50) K/uL [place] # (Auto) (0.00-1.00) K/uL Eos # (Auto) (0.00-0.50) K/uL Baso # (Auto) (0.00-0.20) K/uL Sodium (136-145) mmol/L Potassium (3.5-5.1) mmol/L Chloride (98-107) mmol/L Carbon Dioxide (21.0-32.0) mmol/L BUN (7-18) mg/dL Creatinine (0.51-1.17) mg/dL Est Cr Clr Drug Dosing mL/min Estimated GFR (MDRD) mL/min Glucose (70-99) mg/dL POC Glucose (65-110) mg/dl Hemoglobin A1c 8.1 H (4.3-5.7) % Calcium (8.5-10.1) mg/dL Total Bilirubin (0.2-1.0) mg/dL AST (15-37) U/L ALT (12-78) U/L Alkaline Phosphatase (46-116) IU/L Total Protein (6.4-8.2) g/dL Albumin (3.4-5.0) g/dL Triglycerides (30-150) mg/dL Cholesterol (100-200) mg/dL LDL Cholesterol, Calc (0-100) mg/dL HDL Cholesterol (40-60) mg/dL Amylase (25-115) U/L Lipase (73-393) U/L Specimen Type Urine Color Urine Appearance Urine pH (5.0-9.0) Ur Specific [place] (1.005-1.030) Urine Protein (NEGATIVE) mg/dL Urine Glucose (UA) (NEGATIVE) mg/dL Urine Ketones (NEGATIVE) mg/dL Urine Occult Blood (NEGATIVE) Urine Nitrite (NEGATIVE) Urine Bilirubin (NEGATIVE) Urine Urobilinogen (0.2-1.0) E.U./dL Ur Leukocyte Esterase (NEGATIVE) Urine RBC /HPF Urine WBC /HPF Urine Bacteria (NONE TO FEW) /HPF SARS-CoV-2 RNA (ADITI) (NEGATIVE) Laboratory Tests 05/03/20 05/03/20 05/03/20 Range/Units 08:00 08:00 08:00 WBC 6.2 (4.0-10.2) K/uL RBC 4.89 (3.77-5.09) M/uL Hgb 14.0 (11.7-15.5) g/dL Hct 43.5 (34.0-46.0) % MCV 89.0 (84.0-98.0) fL MCH 28.6 (28.2-33.3) pg MCHC 32.2 (31.7-36.0) g/dL RDW 13.6 (11.2-14.1) % Plt Count 221 (150-350) K/uL Neut % (Auto) 61.9 (45.0-80.0) % Lymph % (Auto) 26.8 (10.0-50.0) % [place] % (Auto) 5.8 (2.0-14.0) % Eos % (Auto) 4.7 (0.0-5.0) % Baso % (Auto) 0.8 (0.0-2.0) % Neut # (Auto) 3.85 (1.40-7.00) K/uL Lymph # (Auto) 1.67 (0.50-3.50) K/uL [place] # (Auto) 0.36 (0.00-1.00) K/uL Eos # (Auto) 0.29 (0.00-0.50) K/uL Baso # (Auto) 0.05 (0.00-0.20) K/uL PT 9.1 L (9.5-12.0) SEC INR 0.9 APTT 23.2 L (24.5-32.8) SEC Sodium (136-145) mmol/L Potassium (3.5-5.1) mmol/L Chloride (98-107) mmol/L Carbon Dioxide (21.0-32.0) mmol/L BUN (7-18) mg/dL Creatinine (0.51-1.17) mg/dL Est Cr Clr Drug Dosing mL/min Estimated GFR (MDRD) mL/min Glucose (70-99) mg/dL POC Glucose (65-110) mg/dl Hemoglobin A1c (4.3-5.7) % Lactic Acid (0.4-2.0) mmol/L Uric Acid (2.6-7.2) mg/dL Calcium (8.5-10.1) mg/dL Magnesium (1.8-2.4) mg/dL Total Bilirubin (0.2-1.0) mg/dL AST (15-37) U/L ALT (12-78) U/L Alkaline Phosphatase (46-116) IU/L Total Protein (6.4-8.2) g/dL Albumin (3.4-5.0) g/dL Triglycerides (30-150) mg/dL Cholesterol (100-200) mg/dL LDL Cholesterol, Calc (0-100) mg/dL HDL Cholesterol (40-60) mg/dL Amylase 31 (25-115) U/L Lipase (73-393) U/L Specimen Type Urine Color Urine Appearance Urine pH (5.0-9.0) Ur Specific [place] (1.005-1.030) Urine Protein (NEGATIVE) mg/dL Urine Glucose (UA) (NEGATIVE) mg/dL Urine Ketones (NEGATIVE) mg/dL Urine Occult Blood (NEGATIVE) Urine Nitrite (NEGATIVE) Urine Bilirubin (NEGATIVE) Urine Urobilinogen (0.2-1.0) E.U./dL Ur Leukocyte Esterase (NEGATIVE) Urine RBC /HPF Urine WBC /HPF Urine Bacteria (NONE TO FEW) /HPF SARS-CoV-2 RNA (ADITI) (NEGATIVE) 05/03/20 05/03/20 05/03/20 Range/Units 08:00 08:00 08:18 WBC (4.0-10.2) K/uL RBC (3.77-5.09) M/uL Hgb (11.7-15.5) g/dL Hct (34.0-46.0) % MCV (84.0-98.0) fL MCH (28.2-33.3) pg MCHC (31.7-36.0) g/dL RDW (11.2-14.1) % Plt Count (150-350) K/uL Neut % (Auto) (45.0-80.0) % Lymph % (Auto) (10.0-50.0) % [place] % (Auto) (2.0-14.0) % Eos % (Auto) (0.0-5.0) % Baso % (Auto) (0.0-2.0) % Neut # (Auto) (1.40-7.00) K/uL Lymph # (Auto) (0.50-3.50) K/uL [place] # (Auto) (0.00-1.00) K/uL Eos # (Auto) (0.00-0.50) K/uL Baso # (Auto) (0.00-0.20) K/uL PT (9.5-12.0) SEC INR APTT (24.5-32.8) SEC Sodium 140 (136-145) mmol/L Potassium 3.9 (3.5-5.1) mmol/L Chloride 104 (98-107) mmol/L Carbon Dioxide 26.9 (21.0-32.0) mmol/L BUN 13 (7-18) mg/dL Creatinine 0.76 (0.51-1.17) mg/dL Est Cr Clr Drug Dosing 70.52 mL/min Estimated GFR (MDRD) > 60 mL/min Glucose 226 H (70-99) mg/dL POC Glucose (65-110) mg/dl Hemoglobin A1c (4.3-5.7) % Lactic Acid 1.8 (0.4-2.0) mmol/L Uric Acid 5.0 (2.6-7.2) mg/dL Calcium 9.0 (8.5-10.1) mg/dL Magnesium 1.9 (1.8-2.4) mg/dL Total Bilirubin 0.4 (0.2-1.0) mg/dL AST 55 H (15-37) U/L ALT 100 H (12-78) U/L Alkaline Phosphatase 128 H (46-116) IU/L Total Protein 7.2 (6.4-8.2) g/dL Albumin 3.6 (3.4-5.0) g/dL Triglycerides (30-150) mg/dL Cholesterol (100-200) mg/dL LDL Cholesterol, Calc (0-100) mg/dL HDL Cholesterol (40-60) mg/dL Amylase (25-115) U/L Lipase 105 (73-393) U/L Specimen Type Urine Color Urine Appearance Urine pH (5.0-9.0) Ur Specific [place] (1.005-1.030) Urine Protein (NEGATIVE) mg/dL Urine Glucose (UA) (NEGATIVE) mg/dL Urine Ketones (NEGATIVE) mg/dL Urine Occult Blood (NEGATIVE) Urine Nitrite (NEGATIVE) Urine Bilirubin (NEGATIVE) Urine Urobilinogen (0.2-1.0) E.U./dL Ur Leukocyte Esterase (NEGATIVE) Urine RBC /HPF Urine WBC /HPF Urine Bacteria (NONE TO FEW) /HPF SARS-CoV-2 RNA (ADITI) Negative (NEGATIVE) 05/03/20 05/03/20 05/04/20 Range/Units 09:50 16:43 03:41 WBC (4.0-10.2) K/uL RBC (3.77-5.09) M/uL Hgb (11.7-15.5) g/dL Hct (34.0-46.0) % MCV (84.0-98.0) fL MCH (28.2-33.3) pg MCHC (31.7-36.0) g/dL RDW (11.2-14.1) % Plt Count (150-350) K/uL Neut % (Auto) (45.0-80.0) % Lymph % (Auto) (10.0-50.0) % [place] % (Auto) (2.0-14.0) % Eos % (Auto) (0.0-5.0) % Baso % (Auto) (0.0-2.0) % Neut # (Auto) (1.40-7.00) K/uL Lymph # (Auto) (0.50-3.50) K/uL [place] # (Auto) (0.00-1.00) K/uL Eos # (Auto) (0.00-0.50) K/uL Baso # (Auto) (0.00-0.20) K/uL PT (9.5-12.0) SEC INR APTT (24.5-32.8) SEC Sodium (136-145) mmol/L Potassium (3.5-5.1) mmol/L Chloride (98-107) mmol/L Carbon Dioxide (21.0-32.0) mmol/L BUN (7-18) mg/dL Creatinine (0.51-1.17) mg/dL Est Cr Clr Drug Dosing mL/min Estimated GFR (MDRD) mL/min Glucose (70-99) mg/dL POC Glucose 114 H 165 H (65-110) mg/dl Hemoglobin A1c (4.3-5.7) % Lactic Acid (0.4-2.0) mmol/L Uric Acid (2.6-7.2) mg/dL Calcium (8.5-10.1) mg/dL Magnesium (1.8-2.4) mg/dL Total Bilirubin (0.2-1.0) mg/dL AST (15-37) U/L ALT (12-78) U/L Alkaline Phosphatase (46-116) IU/L Total Protein (6.4-8.2) g/dL Albumin (3.4-5.0) g/dL Triglycerides (30-150) mg/dL Cholesterol (100-200) mg/dL LDL Cholesterol, Calc (0-100) mg/dL HDL Cholesterol (40-60) mg/dL Amylase (25-115) U/L Lipase (73-393) U/L Specimen Type Urinvoid Urine Color Yellow Urine Appearance Clear Urine pH 7.0 (5.0-9.0) Ur Specific [place] 1.015 (1.005-1.030) Urine Protein Negative (NEGATIVE) mg/dL Urine Glucose (UA) Negative (NEGATIVE) mg/dL Urine Ketones Negative (NEGATIVE) mg/dL Urine Occult Blood Negative (NEGATIVE) Urine Nitrite Negative (NEGATIVE) Urine Bilirubin Negative (NEGATIVE) Urine Urobilinogen 0.2 (0.2-1.0) E.U./dL Ur Leukocyte Esterase Negative (NEGATIVE) Urine RBC Not seen /HPF Urine WBC Not seen /HPF Urine Bacteria Not seen (NONE TO FEW) /HPF SARS-CoV-2 RNA (ADITI) (NEGATIVE) 05/04/20 05/04/20 05/04/20 Range/Units 07:15 07:15 07:15 WBC 6.5 (4.0-10.2) K/uL RBC 4.63 (3.77-5.09) M/uL Hgb 13.5 (11.7-15.5) g/dL Hct 41.8 (34.0-46.0) % MCV 90.3 (84.0-98.0) fL MCH 29.2 (28.2-33.3) pg MCHC 32.3 (31.7-36.0) g/dL RDW 13.6 (11.2-14.1) % Plt Count 213 (150-350) K/uL Neut % (Auto) 70.6 (45.0-80.0) % Lymph % (Auto) 20.0 (10.0-50.0) % [place] % (Auto) 5.5 (2.0-14.0) % Eos % (Auto) 3.1 (0.0-5.0) % Baso % (Auto) 0.8 (0.0-2.0) % Neut # (Auto) 4.59 (1.40-7.00) K/uL Lymph # (Auto) 1.30 (0.50-3.50) K/uL [place] # (Auto) 0.36 (0.00-1.00) K/uL Eos # (Auto) 0.20 (0.00-0.50) K/uL Baso # (Auto) 0.05 (0.00-0.20) K/uL PT (9.5-12.0) SEC INR APTT (24.5-32.8) SEC Sodium 141 (136-145) mmol/L Potassium 3.9 (3.5-5.1) mmol/L Chloride 104 (98-107) mmol/L Carbon Dioxide 32.0 (21.0-32.0) mmol/L BUN 12 (7-18) mg/dL Creatinine 0.97 (0.51-1.17) mg/dL Est Cr Clr Drug Dosing 55.26 mL/min Estimated GFR (MDRD) 59 mL/min Glucose 181 H (70-99) mg/dL POC Glucose (65-110) mg/dl Hemoglobin A1c 8.1 H (4.3-5.7) % Lactic Acid (0.4-2.0) mmol/L Uric Acid (2.6-7.2) mg/dL Calcium 8.9 (8.5-10.1) mg/dL Magnesium (1.8-2.4) mg/dL Total Bilirubin 0.5 (0.2-1.0) mg/dL AST 83 H (15-37) U/L ALT 111 H (12-78) U/L Alkaline Phosphatase 104 (46-116) IU/L Total Protein 6.7 (6.4-8.2) g/dL Albumin 3.4 (3.4-5.0) g/dL Triglycerides 158 H (30-150) mg/dL Cholesterol 199 (100-200) mg/dL LDL Cholesterol, Calc 126 H (0-100) mg/dL HDL Cholesterol 41 (40-60) mg/dL Amylase 24 L (25-115) U/L Lipase 76 (73-393) U/L Specimen Type Urine Color Urine Appearance Urine pH (5.0-9.0) Ur Specific [place] (1.005-1.030) Urine Protein (NEGATIVE) mg/dL Urine Glucose (UA) (NEGATIVE) mg/dL Urine Ketones (NEGATIVE) mg/dL Urine Occult Blood (NEGATIVE) Urine Nitrite (NEGATIVE) Urine Bilirubin (NEGATIVE) Urine Urobilinogen (0.2-1.0) E.U./dL Ur Leukocyte Esterase (NEGATIVE) Urine RBC /HPF Urine WBC /HPF Urine Bacteria (NONE TO FEW) /HPF SARS-CoV-2 RNA (ADITI) (NEGATIVE) [facility] Results - Last 24 hrs: Microbiology 05/03/20 08:18 Influenza Type A Antigen Screen - Final Nasal, Unspecified NEGATIVE INFLUENZA A VIRUS AG REFERENCE RANGE: NEGATIVE Influenza Type B Antigen Screen - Final NEGATIVE INFLUENZA B VIRUS AG REFERENCE RANGE: NEGATIVE Urine culture and sensitivity is pending. Med Orders - Current: Current Medications Acetaminophen (Tylenol) 650 mg PO Q4H PRN PRN Reason: Pain Last Admin: 05/04/20 07:40 Dose: 650 mg Documented by: Calcium Carbonate/Glycine (Tums Extra Strength) 750 mg PO BID [facility] Last Admin: 05/04/20 07:40 Dose: 750 mg Documented by: Dextrose/Water (Dextrose 50% In Water) 50 ml IV ASDIRECTED PRN PRN Reason: Hypoglycemia Duloxetine HCl (Cymbalta) 60 mg PO DAILY [facility] Last Admin: 05/04/20 07:40 Dose: 60 mg Documented by: Famotidine (Pepcid) 20 mg IVPUSH Q12H [facility] Last Admin: 05/04/20 07:41 Dose: 20 mg Documented by: Gabapentin (Neurontin) 600 mg PO BEDTIME [facility] Last Admin: 05/03/20 20:11 Dose: 600 mg Documented by: Glucagon (Glucagen) 1 mg IM ASDIRECTED PRN PRN Reason: Hypoglycemia Hydromorphone HCl (Dilaudid) 1 mg IVPUSH Q6H PRN PRN Reason: Pain (severe 7-10) Last Admin: 05/04/20 03:28 Dose: 1 mg Documented by: Insulin Human Lispro (Humalog) 0 unit SUBCUT Q6H [facility]; Protocol Last Admin: 05/04/20 05:34 Dose: Not Given Documented by: Ondansetron HCl (Zofran) 4 mg IVPUSH Q6H PRN PRN Reason: Nausea/Vomiting Last Admin: 05/04/20 03:28 Dose: 4 mg Documented by: Pantoprazole Sodium (Protonix Iv) 40 mg IVPUSH Q12H [facility] Last Admin: 05/04/20 07:41 Dose: 40 mg Documented by: Sodium Chloride (Saline Flush) 10 ml FLUSH ASDIRECTED PRN PRN Reason: Keep Vein Open Last Admin: 05/03/20 13:13 Dose: 10 ml Documented by: Sodium Chloride (Saline Flush) 10 ml FLUSH Q12HR [facility] Last Admin: 05/04/20 07:41 Dose: 10 ml Documented by: Sucralfate (Carafate) 1 gm PO Q6H [facility] Last Admin: 05/04/20 05:15 Dose: 1 gm Documented by: Temazepam (Restoril) 15 mg PO DAILY@2000 PRN PRN Reason: Insomnia Discontinued Medications Al Hydroxide/Mg Hydroxide (Gi Cocktail) 30 ml PO ONETIME ONE Stop: 05/03/20 08:52 Last Admin: 05/03/20 08:54 Dose: 30 ml Documented by: Famotidine (Pepcid) 40 mg IVPUSH ONETIME ONE Stop: 05/03/20 08:17 Last Admin: 05/03/20 08:30 Dose: 40 mg Documented by: Famotidine (Pepcid) 20 mg IVPUSH Q12H [facility] Hydromorphone HCl (Dilaudid) 1 mg IVPUSH ONETIME ONE Stop: 05/03/20 08:51 Last Admin: 05/03/20 08:54 Dose: 1 mg Documented by: Lactated Ringer's (Ringers, Lactated) 1,000 mls @ 999 mls/hr IV .BOLUS ONE Stop: 05/03/20 09:16 Last Admin: 05/03/20 08:34 Dose: 999 mls/hr Documented by: Iopamidol (Isovue-300 (61%)) 100 ml IVPUSH ONETIME ONE Stop: 05/03/20 09:39 Last Admin: 05/03/20 14:23 Dose: 100 ml Documented by: Metoclopramide HCl (Reglan) 10 mg IVPUSH ONETIME ONE Stop: 05/03/20 09:35 Last Admin: 05/03/20 09:39 Dose: 10 mg Documented by: Non-Formulary Medication (Metformin [Glucophage Xr]) 250 mg PO BIDMEALS [facility] Non-Formulary Medication (Metformin [Glucophage Xr]) 250 mg PO BIDMEALS [facility] Ondansetron HCl (Zofran) 4 mg IVPUSH ONETIME ONE Stop: 05/03/20 08:17 Last Admin: 05/03/20 08:25 Dose: 4 mg Documented by: Pantoprazole Sodium (Protonix Iv) 40 mg IVPUSH ONETIME ONE Stop: 05/03/20 08:17 Last Admin: 05/03/20 08:26 Dose: 40 mg Documented by: Sucralfate (Carafate) 1 gm PO QIDACANDBED ONE Stop: 05/03/20 12:29 Last Admin: 05/03/20 13:15 Dose: 1 gm Documented by: - Exam Quality Assessment: Reports: DVT Prophylaxis. Denies: Supplemental Oxygen, Central Line/PICC, Skin Breakdown General: Reports: Alert, Oriented, Cooperative, No Acute Distress HEENT: Reports: Pupils Equal, Pupils Reactive, EOMI, Mucous Membr. Moist/Why. Denies: Scleral Icterus Neck: Reports: Supple, Trachea Midline, No JVD, No Thyromegaly, +2 Carotid Pulse wo Bruit. Denies: Lymphadenopathy Lungs: Reports: Clear to Auscultation, Normal Respiratory Effort Cardiovascular: Reports: Regular Rate, Regular Rhythm, No Murmurs. Denies: Gallops, Rubs GI/Abdominal Exam: Normal Bowel Sounds, Soft, No Organomegaly, No Distention, No Abnormal Bruit, No Mass, Tender (Mild persistent left upper quadrant palpation pain). No: Guarding, Rigid, Rebound (Female) Exam: Deferred Rectal (Female) Exam: Deferred Back Exam: Reports: Full Range of Motion, Other (Mild scoliosis). Denies: CVA Tenderness (L), CVA Tenderness (R), Muscle Spasm, Paraspinal Tenderness, Vertebral Tenderness Extremities: Normal Inspection, Normal Range of Motion, Non-Tender, No Pedal Edema, Normal Capillary Refill. No: Kory's Sign Skin: Reports: Warm, Dry, Intact. Denies: Rash, Ecchymosis Neurological: Reports: No New Focal Deficit Psy/Mental Status: Reports: Alert, Normal Affect, Normal Mood. Denies: Agitated, Hallucinations, Withdrawal Symptoms
--- NOTE | 2020-05-04 10:06 | PCM.SN.2 ---
- Free Text/Narrative Note: Unfortunately HIDA scan is not available in this facility this week with this evaluation to be scheduled for next week.
[2020-05-06] MEDS ORDERED: METFORMIN 250 MG PO SCH (07:30)
== END 2020-05-04 11:03 | disposition home or self-care (01) ==
LOC: LL.ED 07:52 → LL.MS 12:17
PROVIDERS: ADMIT Family Medicine; ATTEND Family Medicine
DX: R10.12 Left upper quadrant pain (principal); E78.00 Pure hypercholesterolemia, unspecified; K21.9 Gastro-esophageal reflux disease without esophagitis; E11.42 Type 2 diabetes mellitus with diabetic polyneuropathy; M89.49 Other hypertrophic osteoarthropathy, multiple sites; R03.0 Elevated blood-pressure reading, without diagnosis of hypertension; R79.89 Other specified abnormal findings of blood chemistry; F41.8 Other specified anxiety disorders; K76.0 Fatty (change of) liver, not elsewhere classified; Z20.822 Contact with and (suspected) exposure to COVID-19; Z88.0 Allergy status to penicillin; Z98.890 Other specified postprocedural states; Z88.8 Allergy status to other drugs, medicaments and biological substances; Z79.899 Other long term (current) drug therapy
CPT/HCPCS: 36415; 74022; 74177; 80053; 80061; 80074; 81001; 82150; 82962; 83036; 83605; 83690; 83735; 84550; 85025; 85610; 85730; 87086; 87635; 87804; 96361; 96374; 96375; 96376; 99285; A9270; C9113; G0378; J1170; J2405; J2765; J3490; J7120; Q9967; 99217; 99220; J1815-GY; U0002